=== PATIENT | male | born 1945 | race Caucasian/White ===

== ENCOUNTER 2022-07-21 13:07 | Outpatient (CLI) | payer MEDICARE, OTHER ==
[2022-07-21 15:34] LABS: BASOPHILS # (AUTO) 0.1 10^3/uL (0.0-0.1); BASOPHILS % (AUTO) 0.9 %; EOSINOPHILS # (AUTO) 0.1 10^3/uL (0.0-0.7); EOSINOPHILS % (AUTO) 2.2 %; HCT - HEMATOCRIT 42.2 % (42.0-52.0); HGB - HEMOGLOBIN 13.6 g/dL (14.0-18.0); LYMPHOCYTES # (AUTO) 1.2 10^3/uL (1.5-3.5); LYMPHOCYTES % (AUTO) 22.2 %; MEAN CORPUSCULAR HEMOGLOBIN 30.4 pg (27.0-31.0); MEAN CORPUSCULAR HGB CONC 32.2 g/dL (32.0-36.0); MEAN CORPUSCULAR VOLUME 94.2 fL (80.0-94.0); MEAN PLATELET VOLUME 10.7 fL (7.4-11.4); MONOCYTES # (AUTO) 0.4 10^3/uL (0.0-1.0); MONOCYTES % (AUTO) 6.9 %; NEUTROPHILS # (AUTO) 3.7 10^3/uL (1.5-6.6); NEUTROPHILS % (AUTO) 67.4 %; PLT - PLATELET COUNT 279 10^3/uL (130-450); RED BLOOD COUNT 4.48 10^6/uL (4.70-6.10); RED CELL DISTRIBUTION WIDTH 14.3 % (12.0-15.0); WHITE BLOOD COUNT 5.5 x10^3/uL (4.8-10.8)
[2022-07-21 16:20] LABS: CREATININE,URINE 83.2 mg/dL; MICROALBUM/CREATININE RATIO,UR 97.4 ug/mg (<30.0); MICROALBUMIN,URINE 8.1 mg/dL (0-300.0)
[2022-07-21 16:34] LABS: ESTIMATED AVERAGE GLUCOSE 160 mg/dL (70-100); HEMOGLOBIN A1c% 7.2 % (4.27-6.07)
[2022-07-21 16:58] LABS: ALBUMIN 3.6 g/dL (3.2-5.5); ALBUMIN/GLOBULIN RATIO 1.2 (1.0-2.2); ALKALINE PHOSPHATASE 67 IU/L (42-121); ALT ALANINE AMINOTRANSFERASE 19 IU/L (10-60); AST ASPARTATE AMINOTRANSFERASE 18 IU/L (10-42); BILIRUBIN,TOTAL 0.7 mg/dL (0.2-1.0); BUN - BLOOD UREA NITROGEN 19 mg/dL (6-20); CALCIUM 9.4 mg/dL (8.5-10.3); CARBON DIOXIDE - CO2 30 mmol/L (21-32); CHLORIDE 104 mmol/L (101-111); CHOL/HDL RATIO 1.9 (<5.0); CHOLESTEROL 154 mg/dL; CREATININE 1.1 mg/dL (0.6-1.2); GFR - MDRD 65 (>89); GLUCOSE 109 mg/dL (70-100); HDL CHOLESTEROL 81 mg/dL; LDL CHOLESTEROL,CALCULATED 59 mg/dL; LDL/HDL RATIO 0.7 (<3.6); POTASSIUM 4.5 mmol/L (3.5-5.0); SODIUM 141 mmol/L (135-145); TOTAL PROTEIN 6.6 g/dL (6.7-8.2); TRIGLYCERIDES 72 mg/dL; VLDL CHOLESTEROL 14 mg/dL
== END 2022-07-21 13:08 | disposition home or self-care (01) ==
LOC: LAB.S 13:07
PROVIDERS: ATTEND Hospitalist
DX: E11.22 Type 2 diabetes mellitus with diabetic chronic kidney disease (principal); N18.31 Chronic kidney disease, stage 3a; E87.5 Hyperkalemia; E78.2 Mixed hyperlipidemia; C61 Malignant neoplasm of prostate
CPT/HCPCS: 36415; 80053; 80061; 82043; 82570; 83036; 85025; G0103; 83721; 84153

== ENCOUNTER 2023-04-26 11:06 | Outpatient (CLI) | payer MEDICARE, OTHER ==
[2023-04-26 14:37] LABS: CALCIUM 9.1 mg/dL (8.5-10.3); CARBON DIOXIDE - CO2 29 mmol/L (21-32); CHLORIDE 107 mmol/L (101-111); GLUCOSE 150 mg/dL (70-100); POTASSIUM 4.6 mmol/L (3.5-5.0); SODIUM 141 mmol/L (135-145)
[2023-04-26 15:07] LABS: ALBUMIN 3.5 g/dL (3.2-5.5); ALBUMIN/GLOBULIN RATIO 1.2 (1.0-2.2); ALKALINE PHOSPHATASE 62 IU/L (42-121); ALT ALANINE AMINOTRANSFERASE 17 IU/L (10-60); AST ASPARTATE AMINOTRANSFERASE 16 IU/L (10-42); BILIRUBIN,TOTAL 0.6 mg/dL (0.2-1.0); BUN - BLOOD UREA NITROGEN 19 mg/dL (6-20); CHOL/HDL RATIO 1.8 (<5.0); CHOLESTEROL 164 mg/dL; CREATININE 1.1 mg/dL (0.6-1.2); GFR - MDRD 65 (>89); HDL CHOLESTEROL 89 mg/dL; LDL CHOLESTEROL,CALCULATED 59 mg/dL; LDL/HDL RATIO 0.7 (<3.6); TOTAL PROTEIN 6.5 g/dL (6.7-8.2); TRIGLYCERIDES 82 mg/dL; VLDL CHOLESTEROL 16 mg/dL
[2023-04-28 06:04] LABS: HBsAG SCREEN Negative (Negative)
== END 2023-04-26 11:07 | disposition home or self-care (01) ==
LOC: LAB.S 11:06
PROVIDERS: ATTEND Hospitalist
DX: I10 Essential (primary) hypertension (principal); E78.2 Mixed hyperlipidemia; Z11.59 Encounter for screening for other viral diseases
CPT/HCPCS: 36415; 80053; 80061; 83721; 87340

== ENCOUNTER 2023-12-20 12:26 | Outpatient (CLI) | payer MEDICARE, OTHER ==
[2023-12-20 15:46] LABS: ALBUMIN 3.9 g/dL (3.2-5.5); ALBUMIN/GLOBULIN RATIO 1.5 (1.0-2.2); ALKALINE PHOSPHATASE 76 IU/L (42-121); ALT ALANINE AMINOTRANSFERASE 14 IU/L (10-60); AST ASPARTATE AMINOTRANSFERASE 14 IU/L (10-42); BILIRUBIN,TOTAL 0.4 mg/dL (0.2-1.0); BUN - BLOOD UREA NITROGEN 24 mg/dL (6-20); CALCIUM 9.6 mg/dL (8.5-10.3); CARBON DIOXIDE - CO2 29 mmol/L (21-32); CHLORIDE 106 mmol/L (101-111); CHOL/HDL RATIO 2.1 (<5.0); CHOLESTEROL 169 mg/dL; CREATININE 1.2 mg/dL (0.6-1.3); GFR - MDRD 58 (>89); GLUCOSE 184 mg/dL (74-104); HDL CHOLESTEROL 82 mg/dL; LDL CHOLESTEROL,CALCULATED 65 mg/dL; LDL/HDL RATIO 0.8 (<3.6); POTASSIUM 4.5 mmol/L (3.5-4.5); SODIUM 140 mmol/L (135-145); TOTAL PROTEIN 6.5 g/dL (6.4-8.9); TRIGLYCERIDES 111 mg/dL (48-352); VLDL CHOLESTEROL 22 mg/dL
[2023-12-20 20:37] LABS: ESTIMATED AVERAGE GLUCOSE 174 mg/dL (70-100); HEMOGLOBIN A1c% 7.7 % (4.27-6.07)
[2023-12-21 07:11] LABS: HBsAG SCREEN Negative (Negative)
== END 2023-12-20 12:27 | disposition home or self-care (01) ==
LOC: LAB.S 12:26
PROVIDERS: ATTEND Hospitalist
DX: I10 Essential (primary) hypertension (principal); E78.2 Mixed hyperlipidemia; Z11.59 Encounter for screening for other viral diseases; E11.22 Type 2 diabetes mellitus with diabetic chronic kidney disease
CPT/HCPCS: 36415; 80053; 80061; 82043; 82570; 83036; 83721; 84443; 87340

== ENCOUNTER 2025-03-17 21:34 | Inpatient (IN) ==
--- NOTE | 2025-03-17 21:37 | ED Physician Documentation ---
PD HPI ALTERED MENTAL STATUS Stated complaint Stated Complaint: AMS Chief complaint Chief Complaint: Fever Additional information Additional information: BIBA. HPI is provided by EMS. Patient is unable to provide reliable HPI/ROS due to AMS. EMS report is informed by patient's family members that were on scene but are not in ED at this time. Patient has had approximately 2 days of hematuria, fever Tmax 103. Since earlier today, the patient has also exhibited confusion. Per EMS report, the family is indicated the patient's baseline mental status is AAO x 3, conversant and appropriate. FSBS by EMS 56, given 175 mL D10, repeat FSBS 140. Meds/Allgy Home Medications Ambulatory Orders Medication Instructions Recorded Confirmed amlodipine 5 mg tablet 5 mg PO DAILY 03/18/25 03/18/25 gabapentin 300 mg capsule 900 mg PO DAILY PM 03/18/25 03/18/25 glipizide 10 mg tablet, extended 10 mg PO DAILY 03/18/25 03/18/25 release 24 hr metformin 500 mg tablet,extended 500 mg PO BID 03/18/25 03/18/25 release 24 hr metoprolol succinate 50 mg 50 mg PO DAILY 03/18/25 03/18/25 tablet,extended release 24 hr rosuvastatin 40 mg tablet 20 mg PO DAILY 03/18/25 03/18/25 Allergies Allergies Allergy/AdvReac Type Severity Reaction Status Date / Time No Known Drug Allergies Allergy Verified 03/17/25 22:12 PFSH Active Problems All Active Problems (Updated 03/17/25 @ 23:01 by Madan Pace MD) Sepsis (Acute) Medical History Medical History (Updated 03/17/25 @ 23:01 by Madan Pace MD) Prostate CA Diabetes mellitus Social History Social History Smoking Status: Former smoker Patient requests smoking cessation consult: No Initiate information on smoking cessation: No Relationship: Spouse Level: Assisted Do you feel safe in your home environment?: Yes Suffered physical, verbal, emotional, or financial abuse?: No Exam Exam Vital Signs: Vital Signs x48h Temp Pulse Resp BP Pulse Ox 03/17/25 21:44 39.4 C H 112 H 20 123/58 L 94 Constitutional normal general appearance, no apparent distress and alert HENMT head/scalp atraumatic, hearing grossly abnormal ([place]) and oral mucous membranes abnormal (dry) Eyes PERRL and EOMs intact bilaterally Respiratory breath sounds equal bilaterally, clear to auscultation bilaterally, no wheezes and no rales Cardiovascular normal heart rate noted, regular rhythm noted, no murmur and no edema Gastrointestinal abdomen soft to palpation, nontender to palpation, nondistended and hernia noted (large, soft, nontender umbilical hernia) Neurology no movement abnormality noted and no focal motor deficit noted Psychiatry orientation abnormal (disoriented to place) and (disoriented to time) does not know location. says year is 1994. gradually able to recall year but not day nor month of . Says current month is February Skin skin color normal Results Vitals Vitals: Vital Signs - 24 hr 03/17/25 21:44 03/17/25 22:11 03/17/25 22:14 Temperature 39.4 C H Temperature Source Oral Pulse Rate 112 H 107 H Respiratory Rate 20 28 H Blood Pressure 123/58 L 91/66 O2 Saturation 94 92 O2 Source Room air Room air Pain Intensity 0 0 03/17/25 22:26 03/17/25 22:41 03/17/25 23:00 Temperature Temperature Source Pulse Rate 103 H 102 H 103 H Respiratory Rate 28 H 28 H 28 H Blood Pressure 103/64 118/51 L 106/57 L O2 Saturation 90 L 91 L 90 L O2 Source Room air Room air Room air Pain Intensity 03/17/25 23:15 03/17/25 23:23 03/17/25 23:30 Temperature Temperature Source Pulse Rate 103 H 106 H Respiratory Rate 30 H 28 H Blood Pressure 91/49 L 91/69 O2 Saturation 90 L 91 L O2 Source Pain Intensity 2 03/17/25 23:45 Temperature Temperature Source Pulse Rate 107 H Respiratory Rate 28 H Blood Pressure 97/62 O2 Saturation 93 O2 Source Room air Pain Intensity Oxygen O2 Source Room air Labs Labs: Laboratory Tests 03/17/25 03/17/25 03/17/25 21:50 21:51 21:56 WBC 2.8 L RBC 4.32 L Hgb 13.4 L Hct 40.5 L MCV 93.8 MCH 31.0 MCHC 33.1 RDW 14.5 Plt Count MPV 11.3 Neut # (Auto) Not Reportable Lymph # (Auto) Not Reportable [place] # (Auto) Not Reportable Eos # (Auto) Not Reportable Baso # (Auto) Not Reportable Absolute Nucleated RBC Not Reportable Total Counted 100 Band Neuts % (Manual) 17 H Abnorm Lymph % (Manual) 0 Metamyelocytes % 2 H Nucleated RBC % Not Reportable Neutrophils # (Manual) 2.5 Lymphocytes # (Manual) 0.1 L Monocytes # (Manual) 0.1 Eosinophils # (Manual) 0.0 Basophils # (Manual) 0.0 Differential Comment MANUAL DIFFERENTIAL Platelet Estimate NORMAL (130-450,000) Platelet Morphology NORMAL APPEARANCE RBC Morph Micro Appear NORMAL APPEARANCE Sodium 135 Potassium 3.3 L Chloride 100 L Carbon Dioxide 21 Anion Gap 14.0 H BUN 35 H Creatinine 1.8 H Estimated GFR (MDRD) 36 L Glucose 126 H POC Whole Bld Glucose 129 Estimat Average Glucose 169 H Hemoglobin A1c % 7.5 H Lactic Acid 1.9 Calcium 8.5 Total Bilirubin 1.7 H AST 72 H ALT 28 Alkaline Phosphatase 109 Total Protein 5.9 L Albumin 3.2 Globulin 2.7 Albumin/Globulin Ratio 1.2 Triglycerides 139 Cholesterol 134 LDL Cholesterol, Calc 43 VLDL Cholesterol 28 HDL Cholesterol 63 LDL/HDL Ratio 0.7 Cholesterol/HDL Ratio 2.1 TSH 5.38 Urine Color Urine Clarity Urine pH Ur Specific [place] Urine Protein Urine Glucose (UA) Urine Ketones Urine Occult Blood Urine Nitrite Urine Bilirubin Urine Urobilinogen Ur Leukocyte Esterase Urine RBC Urine WBC Urine WBC Clumps Ur Epithelial Cells Ur Squamous Epith Cells Amorphous Sediment Urine Bacteria Urine Casts Urine Culture Comments Nasal Adenovirus (PCR) NOT DETECTED Nasal B. parapertussis DNA (PCR) NOT DETECTED Nasal Coronavir 229E PCR NOT DETECTED Nasal Coronavir HKU1 PCR NOT DETECTED Nasal Coronavir NL63 PCR NOT DETECTED Nasal Coronavir OC43 PCR NOT DETECTED Nasal Enterovir/Rhinovir PCR NOT DETECTED Nasal Influenza B PCR NOT DETECTED Nasal Influenza A PCR NOT DETECTED Nasal Parainfluen 1 PCR NOT DETECTED Nasal Parainfluen 2 PCR NOT DETECTED Nasal Parainfluen 3 PCR NOT DETECTED Nasal Parainfluen 4 PCR NOT DETECTED Nasal RSV (PCR) NOT DETECTED Nasal B.pertussis DNA PCR NOT DETECTED Nasal C.pneumoniae (PCR) NOT DETECTED [place] Human Metapneumo PCR NOT DETECTED Nasal M.pneumoniae (PCR) NOT DETECTED Nasal SARS-CoV-2 (PCR) NOT DETECTED 03/17/25 23:35 WBC RBC Hgb Hct MCV MCH MCHC RDW Plt Count MPV Neut # (Auto) Lymph # (Auto) [place] # (Auto) Eos # (Auto) Baso # (Auto) Absolute Nucleated RBC Total Counted Band Neuts % (Manual) Abnorm Lymph % (Manual) Metamyelocytes % Nucleated RBC % Neutrophils # (Manual) Lymphocytes # (Manual) Monocytes # (Manual) Eosinophils # (Manual) Basophils # (Manual) Differential Comment Platelet Estimate Platelet Morphology RBC Morph Micro Appear Sodium Potassium Chloride Carbon Dioxide Anion Gap BUN Creatinine Estimated GFR (MDRD) Glucose POC Whole Bld Glucose Estimat Average Glucose Hemoglobin A1c % Lactic Acid Calcium Total Bilirubin AST ALT Alkaline Phosphatase Total Protein Albumin Globulin Albumin/Globulin Ratio Triglycerides Cholesterol LDL Cholesterol, Calc VLDL Cholesterol HDL Cholesterol LDL/HDL Ratio Cholesterol/HDL Ratio TSH Urine Color DARK YELLOW Urine Clarity TURBID Urine pH 6.0 Ur Specific [place] 1.015 Urine Protein 100 H Urine Glucose (UA) NEGATIVE Urine Ketones 15 H Urine Occult Blood LARGE H Urine Nitrite POSITIVE H Urine Bilirubin SMALL H Urine Urobilinogen 2 H Ur Leukocyte Esterase SMALL H Urine RBC 6-10 H Urine WBC 6-10 H Urine WBC Clumps PRESENT Ur Epithelial Cells RARE Renal Tubular Ur Squamous Epith Cells RARE Squamous Amorphous Sediment Moderate Urine Bacteria Few Urine Casts 0-2 Fine Granular Urine Culture Comments INDICATED Nasal Adenovirus (PCR) Nasal B. parapertussis DNA (PCR) Nasal Coronavir 229E PCR Nasal Coronavir HKU1 PCR Nasal Coronavir NL63 PCR Nasal Coronavir OC43 PCR Nasal Enterovir/Rhinovir PCR Nasal Influenza B PCR Nasal Influenza A PCR Nasal Parainfluen 1 PCR Nasal Parainfluen 2 PCR Nasal Parainfluen 3 PCR Nasal Parainfluen 4 PCR Nasal RSV (PCR) Nasal B.pertussis DNA PCR Nasal C.pneumoniae (PCR) [place] Human Metapneumo PCR Nasal M.pneumoniae (PCR) Nasal SARS-CoV-2 (PCR) Rads (name of study) chest xray: Relevant Findings:: Prelim report reviewed and See rad report PD Medical Decision Making ED course Complexity details: reviewed results, re-evaluated patient, considered differential and d/w patient ED course: Sepsis protocol undertaken including IV metronidazole, cefepime, vancomycin after blood cultures and UA obtained. Unremarkable CXR. UA is s/o UTI. CT A/P without contrast undertaken to assess for possible ureteral obstruction and there are no such findings; the CT demonstrates mild thickening of urinary bladder s/o cystitis. I discussed this case with [facility] practitioner on duty who accept admisssion to [facility] hospitalist service. Sepsis Event Sepsis Onset Date: 03/17/25 Sepsis Onset Time: 22:00 Current Stage of Sepsis: Sepsis Initial Hypotension: Not hypotensive Possible source of Sepsis: Unknown Mental/Cognitive Status: Confused, Change from baseline and Alert Reason for not giving 30ml/kg crystalloid fluids: Not in septic shock Capillary refill: Less than 2 seconds Peripheral Pulse Strength: 3+ Normal Peripheral Pulse Location: Radial Bedside ultrasound performed: No Discharge Plan Discharge Patient Disposition: [facility] DC/Xfer Condition: Stable Clinical Impression: Sepsis Interventions: ED Admission Assessment Last Done: 03/18/25 02:51
[2025-03-17 22:10] LABS: BASOPHILS % (AUTO) 0.4 %; EOSINOPHILS % (AUTO) 0.4 %; HCT - HEMATOCRIT 40.5 % (42.0-52.0); HGB - HEMOGLOBIN 13.4 g/dL (14.0-18.0); LYMPHOCYTES % (AUTO) 1.4 %; MEAN CORPUSCULAR HGB CONC 33.1 g/dL (32.0-36.0); MEAN CORPUSCULAR VOLUME 93.8 fL (80.0-94.0); MEAN PLATELET VOLUME 11.3 fL (7.4-11.4); MONOCYTES % (AUTO) 0.4 %; NEUTROPHILS % (AUTO) 96.7 %; RED BLOOD COUNT 4.32 10^6/uL (4.70-6.10); RED CELL DISTRIBUTION WIDTH 14.5 % (12.0-15.0); WHITE BLOOD COUNT 2.8 x10^3/uL (4.8-10.8)
[2025-03-17] MEDS: ACETAMINOPHEN 325 MG TABLET PO STA (22:14)
[2025-03-17] MEDS ORDERED: CEFEPIME 2 GM VIAL ONE (22:21)
[2025-03-17] MEDS ORDERED: VANCOMYCIN 1 GM VIAL ONE (22:21)
[2025-03-17 22:27] LABS: ALBUMIN 3.2 g/dL (3.2-5.5); ALBUMIN/GLOBULIN RATIO 1.2 (1.0-2.2); BILIRUBIN,TOTAL 1.7 mg/dL (0.2-1.0); CALCIUM 8.5 mg/dL (8.5-10.3); CREATININE 1.8 mg/dL (0.6-1.3); POTASSIUM 3.3 mmol/L (3.5-4.5); TOTAL PROTEIN 5.9 g/dL (6.4-8.9)
--- NOTE | 2025-03-17 22:27 | XRAY Report ---
PROCEDURE: XR Chest 1V INDICATIONS: Sepsis TECHNIQUE: One view of the chest was acquired. COMPARISON: None. FINDINGS: Surgical changes and devices: None. Lungs and pleura: No pleural effusions or pneumothorax. Low lung volumes with likely vascular crowdi ng. Mediastinum: Mediastinal contours appear normal. Heart size is normal. Bones and chest wall: No suspicious bony lesions. Overlying soft tissues appear unremarkable. IMPRESSION: Low lung volumes. Otherwise, no acute cardiothoracic process. Reviewed by: Oswaldo Caraballo MD on 03/17/2025 10:26 PM PDT Approved by: Oswaldo Caraballo MD on 03/17/2025 10:26 PM PDT Station ID: [id number]
[2025-03-17] MEDS: CEFEPIME 2 GM in SODIUM CHLORIDE 0.9% MINIBAG 100 ML IV STA (22:34)
[2025-03-17 22:39] LABS: ABNORMAL LYMPHS % (MANUAL) 0 %
[2025-03-17] MEDS: metroNIDAZOLE 500 MG/100 ML 500 MG/100 ML BAG IV STA (22:40)
[2025-03-17 22:43] LABS: BAND NEUTROPHILS % (MANUAL) 17 %; BASOPHILS % (MANUAL) 1 %; LYMPHOCYTES # (MANUAL) 0.1 10^3/uL (1.5-3.5); LYMPHOCYTES % (MANUAL) 5 %; METAMYELOCYTES % (MANUAL) 2 %; MONOCYTES # (MANUAL) 0.1 10^3/uL (0.0-1.0); NEUTROPHILS # (MANUAL) 2.5 10^3/uL (1.5-6.6)
[2025-03-17 22:44] LABS: PLATELET MORPHOLOGY NORMAL APPEARANCE (NORMAL); RBC MORPHOLOGY (MULTIPLE) NORMAL APPEARANCE (NORMAL)
[2025-03-17 22:45] LABS: DIFFERENTIAL COMMENT MANUAL DIFFERENTIAL; PLATELET ESTIMATE, MANUAL NORMAL (130-450,000) (NORMAL)
[2025-03-17] MEDS: VANCOMYCIN INJ 1.75 GM in SODIUM CHLORIDE 0.9% 500 ML IV STA (23:10)
[2025-03-17] MEDS: SODIUM CHLORIDE 0.9% 1,000 ML IV STA (23:10)
[2025-03-17] MEDS: ACETAMINOPHEN 500 MG TABLET PO STA (23:23)
[2025-03-17 23:44] LABS: B. PARAPERTUSSIS- RESP PCR PAN NOT DETECTED; B. PERTUSSIS- RESP PCR PANEL NOT DETECTED; C. PNEUMONIAE- RESP PCR PANEL NOT DETECTED; CORONAVIRUS 229E-RESP PCR NOT DETECTED; CORONAVIRUS HKU1-RESP PCR NOT DETECTED; CORONAVIRUS NL63-RESP PCR NOT DETECTED; CORONAVIRUS OC43-RESP PCR NOT DETECTED; HUMAN METAPNEUMOVIRUS NOT DETECTED; INFLUENZA A- RESP PCR PANEL NOT DETECTED; INFLUENZA B - RESP PCR PANEL NOT DETECTED; M. PNEUMONIAE- RESP PCR PANEL NOT DETECTED; PARAINFLUENZA VIRUS 1 NOT DETECTED; PARAINFLUENZA VIRUS 2 NOT DETECTED; PARAINFLUENZA VIRUS 4 NOT DETECTED; RHINOVIRUS/ENTEROVIRUS NOT DETECTED; RSV- RESP PCR PANEL NOT DETECTED; SARS-CoV-2 -RESP PCR PANEL NOT DETECTED
[2025-03-17 23:51] LABS: BILIRUBIN,URINE SMALL (NEGATIVE); CLARITY,URINE TURBID (CLEAR); GLUCOSE, URINE (UA) NEGATIVE (NEGATIVE); KETONES,URINE (UA) 15 mg/dL (NEGATIVE); LEUKOCYTE ESTERASE, URINE SMALL (NEGATIVE); NITRITE,URINE POSITIVE (NEGATIVE); OCCULT BLOOD,URINE LARGE (NEGATIVE); PROTEIN,URINE 100 mg/dL (NEGATIVE); UROBILINOGEN,URINE 2 E.U./dL (NORMAL)
[2025-03-18 00:02] LABS: AMORPHOUS SEDIMENT,UR Moderate /LPF; BACTERIA,URINE Few /HPF (None Seen); CASTS, URINE 0-2 Fine Granular /LPF; EPITHELIAL CELLS,UR RARE Renal Tubular /HPF (<= Few); SQUAMOUS EPITHELIAL CELL,UR RARE Squamous (<= Few); WBC CLUMPS,URINE PRESENT
[2025-03-18] MEDS ORDERED: ONDANSETRON 4 MG/2 ML VIAL IVP PRN (00:23)
[2025-03-18] MEDS ORDERED: BENZOCAINE/MENTHOL LOZENGE MM PRN (00:23)
[2025-03-18] MEDS ORDERED: BENZONATATE 100 MG CAPSULE PO PRN (00:23)
[2025-03-18] MEDS: POTASSIUM BICARB 25 MEQ TABLET PO STA (00:43)
[2025-03-18] MEDS: LACTATED RINGERS 1,000 ML IV SCH (00:44)
[2025-03-18 01:03] LABS: CHOL/HDL RATIO 2.1 (<5.0); CHOLESTEROL 134 mg/dL; HDL CHOLESTEROL 63 mg/dL; LDL CHOLESTEROL,CALCULATED 43 mg/dL; LDL/HDL RATIO 0.7 (<3.6); TRIGLYCERIDES 139 mg/dL; VLDL CHOLESTEROL 28 mg/dL
--- NOTE | 2025-03-18 01:13 | CT Report ---
PROCEDURE: CT Abdomen/Pelvis WO INDICATIONS: fever, UTI TECHNIQUE: A CT scan of the abdomen and pelvis was performed without the use of intravenous contrast. Images we re recorded and evaluated at appropriate window settings. Reformats: coronal and sagittal. For radiat ion dose reduction, the following was used: automated exposure control, adjustment of mA and/or kV ac cording to patient size. COMPARISON: None. FINDINGS: Image quality: Poor; motion artifact limits evaluation. Peritoneum: No pneumoperitoneum or ascites. Bones: Diffuse osseous demineralization. Rudimentary ribs at T12 followed by 5 nonrib-bearing lumbar vertebrae. Right L5-S1 pseudarthrosis (). Multilevel thoracolumbar osteoporosis with bridging ost eophytes at L3-S1. 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 Lower Thorax: Cardiomegaly. Mild triple vessel coronary artery calcifications. Liver: Normal in size and contour. Gallbladder: No wall thickening, stones, or pericholecystic edema. Biliary tree: No intrahepatic or extrahepatic biliary duct dilatation. Pancreas: No acute abnormality. Spleen: Normal in size. Kidneys: Atrophic kidneys with bilateral simple cysts. No hydronephrosis or obstructive urolithiasis. Adrenals: No nodularity. Bladder: Mild thickening of the bladder wall. : No acute abnormality. Stomach: No focal masses or abnormal distension. Bowel: Normal bowel wall diameter without obstruction. Fluid in the colon. Nonvisualization of the ap pendix without secondary signs of acute appendicitis. Lymph Nodes: No retroperitoneal, mesenteric, or inguinal lymphadenopathy. Vascular: No abdominal aortic aneurysm. Moderate aortoiliac atherosclerosis. Soft tissues: Fat-containing umbilical hernia measuring 7.7 cm in craniocaudal dimension with a 1.9 c m fascial defect in the craniocaudal dimension (). IMPRESSION: 1.No hydronephrosis or obstructive urolithiasis. 2.Atrophic kidneys. 3.Mild mural thickening of the urinary bladder, which can be seen with cystitis. 4.Moderate fat-containing umbilical hernia. 5.Other chronic findings noted above. Reviewed by: Oswaldo Caraballo MD on 03/18/2025 1:11 AM PDT Approved by: Oswaldo Caraballo MD on 03/18/2025 1:11 AM PDT Station ID: [id number]
--- NOTE | 2025-03-18 02:02 | HISTORY & PHYSICAL EXAMINATION ---
Chief Complaint Chief Complaint Chief Complaint: ams, confusion History of Present Illness History of Present Illness HPI Comment/Other: history obtained form ED as pt is poor historian. pt brought to hospital d/t confusion and weakness. no chest pain reported. no head injuries reported. pt c/o hip pain and states he has fallen at home. no abuse reported. when asked questions, pt is very tangential during discussion, even stating the year to be 1994. Review of Systems pt unable to answer many questions. tries to answer but then becomes tangential in conversation. does report hip pain and recent fall. Status of ROS: unobtainable due to mental status PFSH Active Problems All Active Problems (Updated 03/17/25 @ 23:01 by Madan Pace MD) Sepsis (Acute) Medical History Medical History (Updated 03/17/25 @ 23:01 by Madan Pace MD) Prostate CA Diabetes mellitus Social History Social History Relationship: Spouse Do you feel safe in your home environment?: Yes Suffered physical, verbal, emotional, or financial abuse?: No Meds/Allgy Home Medications Ambulatory Orders Medication Instructions Recorded Confirmed amlodipine 5 mg tablet 5 mg PO DAILY 03/18/25 03/18/25 gabapentin 300 mg capsule 900 mg PO DAILY PM 03/18/25 03/18/25 glipizide 10 mg tablet, extended 10 mg PO DAILY 03/18/25 03/18/25 release 24 hr metformin 500 mg tablet,extended 500 mg PO BID 03/18/25 03/18/25 release 24 hr metoprolol succinate 50 mg 50 mg PO DAILY 03/18/25 03/18/25 tablet,extended release 24 hr rosuvastatin 40 mg tablet 20 mg PO DAILY 03/18/25 03/18/25 Allergies Allergies Allergy/AdvReac Type Severity Reaction Status Date / Time No Known Drug Allergies Allergy Verified 03/17/25 22:12 Exam Exam Vital Signs: Vital Signs x48h Temp Pulse Resp BP Pulse Ox O2 Flow Rate 03/18/25 01:30 103 H 24 92/51 L 94 2 03/18/25 01:15 106 H 26 H 94 2 03/18/25 01:00 107 H 26 H 92/54 L 95 2 03/18/25 00:57 30 H 88 L 03/18/25 00:49 37.8 C 03/18/25 00:45 37.8 C 109 H 28 H 112/86 92 03/17/25 23:45 107 H 28 H 97/62 93 03/17/25 23:30 106 H 28 H 91/69 91 L 03/17/25 23:15 103 H 30 H 91/49 L 90 L 03/17/25 23:00 103 H 28 H 106/57 L 90 L 03/17/25 22:41 102 H 28 H 118/51 L 91 L 03/17/25 22:26 103 H 28 H 103/64 90 L 03/17/25 22:11 107 H 28 H 91/66 92 03/17/25 21:44 39.4 C H 112 H 20 123/58 L 94 Sepsis Event Note (H) Evaluation Possible source of Sepsis: positive Unknown Conclusion/Plan Problem List (1) Sepsis: Lab Results 03/17/25 21:56 03/17/25 21:56 Other Other Results/Comments: pt with - - sepsis in setting of uti + pyelo rocephin started f/u cultures lactic ok at this time low bp, tachycardic --> IVF - toxic, metabolic encephalopathy d/t above no focal neuro deficits neuro checks - charlie in setting of above check renal sono ivf, avoid nephrotoxins - generalized debility recent fall, hip pain check XR hip/pelvis would benefit from pt eval and tx f/u labs, cultures, electrolytes, neuro status further orders per clinical course
[2025-03-18 02:04] LABS: THYROID STIMULATING HORMONE 5.38 uIU/mL (0.34-5.60)
--- OUTSIDE RECORDS SUMMARY | 2025-03-18 02:05 | EXTERNAL MEDICAL SUMMARY RPT | Continuity of Care Document ---
Author Organization [place] Address [address] [address] Phone Results/Labs test date facility value unit notes Result panel 1 SARS-CoV-2 -RESP PCR PANEL 2025-03-17 21:50 [facility] NOT DETECTED (missing) A negative test result for this test indicates that SARS-CoV-2 RNA was not present in the specimen above the limit of detection. Testing performed on the BioFire RP2.1 Panel, a multiplexed nucleic acid repiratory panel. Negative results do not preclude infection with SARS-CoV-2 virus and should not be the sole basis of a patient management decision. In some patients repeat testing at various time points may be necessary for virus detection. False-negative results may arise from improper sample collection, degradation of viral RNA during shipping or storage, the presence of PCR inhibitors, and/or mutation in the SARS-CoV-2 virus. INFLUENZA A- RESP PCR PANEL 2025-03-17 21:50 [facility] NOT DETECTED (missing) Influenza A including subtypes H1, H3, and H1-2009 not detected by the BioFire RP2.1 Panel, a multiplexed nucleic acid test intended for the simultaneous qualitative detection and differentiation of nucleic acids from multiple viral and bacterial respiratory organisms. B. PARAPERTUSSIS- RESP PCR PERES 2025-03-17 21:50 [facility] NOT DETECTED (missing) Negative results for this organism do not preclude infection with this organism and may require additional laboratory testing (e.g., bacterial and viral culture, immunofluorescence, and radiography) when evaluating a patient with possible respiratory tract infection. B. PERTUSSIS- RESP PCR PANEL 2025-03-17 21:50 [facility] NOT DETECTED (missing) Negative results for this organism do not preclude infection with this organism and may require additional laboratory testing (e.g., bacterial and viral culture, immunofluorescence, and radiography) when evaluating a patient with possible respiratory tract infection. C. PNEUMONIAE- RESP PCR PANEL 2025-03-17 21:50 [facility] NOT DETECTED (missing) Negative results for this organism do not preclude infection with this organism and may require additional laboratory testing (e.g., bacterial and viral culture, immunofluorescence, and radiography) when evaluating a patient with possible respiratory tract infection. M. PNEUMONIAE- RESP PCR PANEL 2025-03-17 21:50 [facility] NOT DETECTED (missing) Negative results for this organism do not preclude infection with this organism and may require additional laboratory testing (e.g., bacterial and viral culture, immunofluorescence, and radiography) when evaluating a patient with possible respiratory tract infection. CORONAVIRUS 229E-RESP PCR 2025-03-17 21:50 [facility] NOT DETECTED (missing) Negative results in the setting ofa respiratory illness may be due to infection with pathogens not detected by this test, or lower respiratory tract infection that may not be detected by nasopharyngeal specimen. CORONAVIRUS HKU1-RESP PCR 2025-03-17 21:50 [facility] NOT DETECTED (missing) Negative results in the setting ofa respiratory illness may be due to infection with pathogens not detected by this test, or lower respiratory tract infection that may not be detected by nasopharyngeal specimen. CORONAVIRUS AN58-XOPE PCR 2025-03-17 21:50 [facility] NOT DETECTED (missing) Negative results in the setting ofa respiratory illness may be due to infection with pathogens not detected by this test, or lower respiratory tract infection that may not be detected by nasopharyngeal specimen. CORONAVIRUS [id number]-XIIX PCR 2025-03-17 21:50 [facility] NOT DETECTED (missing) Negative results in the setting ofa respiratory illness may be due to infection with pathogens not detected by this test, or lower respiratory tract infection that may not be detected by nasopharyngeal specimen. HUMAN METAPNEUMOVIRUS 2025-03-17 21:50 [facility] NOT DETECTED (missing) Negative results in the setting ofa respiratory illness may be due to infection with pathogens not detected by this test, or lower respiratory tract infection that may not be detected by nasopharyngeal specimen. INFLUENZA B - RESP PCR PANEL 2025-03-17 21:50 [facility] NOT DETECTED (missing) Negative results in the setting ofa respiratory illness may be due to infection with pathogens not detected by this test, or lower respiratory tract infection that may not be detected by nasopharyngeal specimen. PARAINFLUENZA VIRUS 1 2025-03-17 21:50 [facility] NOT DETECTED (missing) Negative results in the setting ofa respiratory illness may be due to infection with pathogens not detected by this test, or lower respiratory tract infection that may not be detected by nasopharyngeal specimen. PARAINFLUENZA VIRUS 2 2025-03-17 21:50 [facility] NOT DETECTED (missing) Negative results in the setting ofa respiratory illness may be due to infection with pathogens not detected by this test, or lower respiratory tract infection that may not be detected by nasopharyngeal specimen. PARAINFLUENZA VIRUS 3 2025-03-17 21:50 [facility] NOT DETECTED (missing) Negative results in the setting ofa respiratory illness may be due to infection with pathogens not detected by this test, or lower respiratory tract infection that may not be detected by nasopharyngeal specimen. PARAINFLUENZA VIRUS 4 2025-03-17 21:50 [facility] NOT DETECTED (missing) Negative results in the setting ofa respiratory illness may be due to infection with pathogens not detected by this test, or lower respiratory tract infection that may not be detected by nasopharyngeal specimen. RHINOVIRUS/ENTEROVI BROCK 2025-03-17 21:50 [facility] NOT DETECTED (missing) Negative results in the setting ofa respiratory illness may be due to infection with pathogens not detected by this test, or lower respiratory tract infection that may not be detected by nasopharyngeal specimen. RSV- RESP PCR PANEL 2025-03-17 21:50 [facility] NOT DETECTED (missing) Negative results in the setting ofa respiratory illness may be due to infection with pathogens not detected by this test, or lower respiratory tract infection that may not be detected by nasopharyngeal specimen. ADENOVIRUS - RESP PCR PANEL 2025-03-17 21:50 [facility] NOT DETECTED (missing) Y Negative results in the setting ofa respiratory illness may be due to infection with pathogens not detected by this test, or lower respiratory tract infection that may not be detected by nasopharyngeal specimen. Result panel 2 GLUCOSE, WHOLE BLOOD 2025-03-17 21:51 [facility] 129 (missing) (missing) Result panel 3 PLT - PLATELET COUNT 2025-03-17 21:56 [facility] (missing) 10 3/ul UNABLE TO REPORT AUTOMATED PLATELET COUNT DUE TO CELLULAR INTERFERENCE OR PLATELET CLUMPING. MANUAL PLATELET ESTIMATE PERFORMED. SUGGEST RECOLLECTION IF INDICATED. ABNORMAL LYMPHS % (MANUAL) 2025-03-17 21:56 [facility] 0 % (missing) BASOPHILS # (MANUAL) 2025-03-17 21:56 [facility] 0.0 10 3/ul (missing) EOSINOPHILS # (MANUAL) 2025-03-17 21:56 [facility] 0.0 10 3/ul (missing) MONOCYTES # (MANUAL) 2025-03-17 21:56 [facility] 0.1 10 3/ul (missing) LYMPHOCYTES # (MANUAL) 2025-03-17 21:56 [facility] 0.1 10 3/ul (missing) LDL/HDL RATIO 2025-03-17 21:56 [facility] 0.7 (missing) (missing) ALBUMIN/GLOBULIN RATIO 2025-03-17 21:56 [facility] 1.2 (missing) (missing) BILIRUBIN,TOTAL 2025-03-17:56 [facility] 1.7 mg/dl As of May 2023 testing method has changed, this may include reference ranges. CREATININE 2025-03-17:56 [facility] 1.8 mg/dl As of May 2023 testing method has changed, this may include reference ranges. LACTIC ACID, VENOUS 2025-03-17:56 [facility] 1.9 mmol/l Y As of May 2023 testing method has changed, this may include reference ranges. TOTAL CELLS COUNTED 2025-03-17:56 [facility] 100 (missing) (missing) CHLORIDE 2025-03-17 21:56 [facility] 100 mmol/l As of May 2023 testing method has changed, this may include reference ranges. ALKALINE PHOSPHATASE 2025-03-17 21:56 [facility] 109 iu/l As of May 2023 testing method has changed, this may include reference ranges. MEAN PLATELET VOLUME 2025-03-17 21:56 [facility] [facility] 11.3 fl (missing) GLUCOSE 2025-03-17:56 [facility] 126 mg/[facility] As of May 2023 testing method has changed, this may include reference ranges. HGB - HEMOGLOBIN 2025-03-17:56 [employer] 13.4 g/dl (missing) CHOLESTEROL 2025-03-17:56 [facility] 134 mg/dl Social History date description facility
[2025-03-18 05:33] LABS: BASOPHILS # (AUTO) 0.1 10^3/uL (0.0-0.1); BASOPHILS % (AUTO) 0.5 %; EOSINOPHILS % (AUTO) 0.1 %; HGB - HEMOGLOBIN 11.9 g/dL (14.0-18.0); LYMPHOCYTES # (AUTO) 0.3 10^3/uL (1.5-3.5); MEAN CORPUSCULAR HEMOGLOBIN 31.2 pg (27.0-31.0); MEAN CORPUSCULAR HGB CONC 33.1 g/dL (32.0-36.0); MEAN CORPUSCULAR VOLUME 94.2 fL (80.0-94.0); MEAN PLATELET VOLUME 10.8 fL (7.4-11.4); MONOCYTES # (AUTO) 0.7 10^3/uL (0.0-1.0); MONOCYTES % (AUTO) 5.1 %; NEUTROPHILS % (AUTO) 90.9 %; RED BLOOD COUNT 3.82 10^6/uL (4.70-6.10); RED CELL DISTRIBUTION WIDTH 14.7 % (12.0-15.0); WHITE BLOOD COUNT 13.2 x10^3/uL (4.8-10.8)
[2025-03-18 05:48] LABS: MAGNESIUM 1.6 mg/dL (1.7-2.3)
[2025-03-18 05:50] LABS: ALBUMIN 2.9 g/dL (3.2-5.5); ALBUMIN/GLOBULIN RATIO 1.3 (1.0-2.2); BILIRUBIN,TOTAL 1.6 mg/dL (0.2-1.0); CALCIUM 7.9 mg/dL (8.5-10.3); CREATININE 2.1 mg/dL (0.6-1.3); TOTAL PROTEIN 5.2 g/dL (6.4-8.9)
[2025-03-18 06:00] LABS: PLATELET ESTIMATE, MANUAL DECREASED (<130,000) (NORMAL); PLATELET MORPHOLOGY 1+ LARGE PLATELETS (NORMAL); PLT - PLATELET COUNT 105 10^3/uL (130-450)
[2025-03-18] MEDS: DEXTROSE 40% GEL 37.5 GM TUBE PO ONE (06:17)
[2025-03-18] MEDS ORDERED: DEXTROSE 40% GEL 37.5 GM TUBE ONE (06:17)
[2025-03-18] MEDS: cefTRIAXone 1 GM in SODIUM CHLORIDE 0.9% MINIBAG 100 ML IV SCH (08:09)
[2025-03-18] MEDS: DEXTROSE 5%-LACTATED RINGERS 1,000 ML IV SCH (08:09)
[2025-03-18] MEDS: LACTOBACILLUS RHAMNOSUS GG CAPSULE PO SCH (08:10)
[2025-03-18] MEDS: ASCORBIC ACID 500 MG TABLET PO SCH (08:10)
[2025-03-18] MEDS: polyethylene glycoL 3350 17 GM PACKET PO SCH (08:17)
[2025-03-18 08:46] LABS: ESTIMATED AVERAGE GLUCOSE 169 mg/dL (70-100); HEMOGLOBIN A1c% 7.5 % (4.27-6.07)
--- NOTE | 2025-03-18 10:35 | XRAY Report ---
PROCEDURE: XR Hips w/Pelvis 2-3V BL INDICATIONS: pain, falls TECHNIQUE: AP view of the pelvis and bilateral frog-leg lateral view(s) of the hips were acquired. COMPARISON: None. FINDINGS: Bones: No fractures or dislocations. No suspicious bony lesions. Mild to moderate bilateral hip deg enerative change. The visualized pelvic ring appears intact. Soft tissues: No suspicious soft tissue calcifications or masses. IMPRESSION: Mild to moderate bilateral hip degenerative change. No acute bony abnormality. Reviewed by: Trent Pardo MD on 03/18/2025 10:34 AM PDT Approved by: Trent Pardo MD on 03/18/2025 10:34 AM PDT Station ID: [id number]
[2025-03-18] MEDS: METOPROLOL SUCCINATE 50 MG TABLET PO SCH (11:47)
[2025-03-18] MEDS: INSULIN LISPRO 300 UNIT/3 ML PEN SUBQ SCH (11:48)
[2025-03-18] MEDS: cefTRIAXone 1 GM VIAL IVP ONE (11:48)
--- NOTE | 2025-03-18 12:52 | PHARMACY PROGRESS NOTE ---
Best Possible Medication History Admit Date and Time: 03/18/25 0022 Home Medications Medication Instructions Recorded Confirmed Type amlodipine 5 mg tablet 5 mg PO QAM 03/18/25 03/18/25 History gabapentin 300 mg capsule 900 mg PO DAILY PM 03/18/25 03/18/25 History glipizide 10 mg tablet, extended 10 mg PO QAM 03/18/25 03/18/25 History release 24 hr metformin 500 mg tablet,extended 500 mg PO BID 03/18/25 03/18/25 History release 24 hr metoprolol succinate 50 mg 50 mg PO QPM 03/18/25 03/18/25 History tablet,extended release 24 hr rosuvastatin 40 mg tablet 20 mg PO QPM 03/18/25 03/18/25 History Processed by: Pharmacy (Medication reconciliation completed by pharmacy account directorChe) Medications reviewed in ED?: No Medication History completed: Yes Patient Interview: Completed Secondary Source(s): Written medication list, Spouse/Significant other and Insurance records (looks like has 1 tablet written down for most medications, but fill instructions are for higher or mor frequent dosing (glipizide, metformin, metoprolol, rosuvastatin)) [facility] Statement: As the person ultimately responsible for medication therapy, providers are able to order a medication from an existing home medication list in [facility] via the "Reconcile Routine" prior to Confirmation of that medication by client support analyst. Such practice is discouraged except when the physician, in their clinical judgment, deems that a medical need exists for a medication without regard to previous use.
--- NOTE | 2025-03-18 13:01 | PT Plan of Care ---
PT Inpatient Plan of Care DIAGNOSIS Diagnosis: sepsis d/t UTI c AMS Diagnosis: bacteremia Referring Provider: Eliezer Hernandez Patient Status: Inpatient CHIEF COMPLAINT Chief Complaint: weakness Onset of Chief Complaint: FISH PROCESSOR MEDICAL/SURGICAL HISTORY Medical History (Updated 03/17/25 @ 23:01 by Madan Pace MD) Prostate CA Diabetes mellitus BALANCE/FUNCTIONAL RESULTS Sitting Balance: Good Standing Balance: Fair Tinetti Composite Score (Balance + Gait): 19 Tinetti Assessment Interpretation: Moderate Fall Risk ASSESSMENT Assessment: Pt is a pleasant 79yo M referred for PT eval d/t limited mobility and weakness. Pt admitted with sepsis d/t UTI, found to have gram negative bacteremia. Recent fall at home with BL hip pain. Pt is cleared for PT eval. Pt lives in multistory home with his who is present for majority of eval; they report he is fully indep at baseline including stair climbing and gardening on a near daily basis. Upon PT eval, pt met on 2L O2, [place] but able to answer questions correctly. Overall A&Ox3 but benefits from slow, loud, and clear 2-3 step cues d/t inattention, [place], mild confusion. Transfers with minAx1 and able to amb c FWW and min to modAx1 x15' overall. Gait notable for reduced toe clearance and step to pattern. Pt is a moderate fall risk given h/o falls, current strength and gait pattern and Tinetti score of 19/28. Given above impairments, pt is far below baseline of indep mobility and will benefit from skilled PT in acute setting to progress functional mobility and reduce fall risk. When medically clear, PT rec dc to SNF. GOALS Improve supine to sit to:: Contact Guard Improve sit to stand to:: Contact Guard Improve pivot transfer ability to:: Contact Guard Improve sit to supine to:: Contact Guard Improve gait ability to:: CGA Advance Assistive Device to:: Front Wheeled Walker Increase distance walked to (in feet):: 100 PLAN Frequency: 1-2x/day Duration: Until goals are met DISCHARGE RECOMMENDATIONS Discharge Location: Group Home Facility [place] Equipment Recommended: Front wheeled walker Other Discharge Equipment: may need FWW Transport Needs at Discharge: Wheelchair van
--- NOTE | 2025-03-18 13:01 | PT Plan of Care ---
PT Inpatient Plan of Care DIAGNOSIS Diagnosis: sepsis d/t UTI c AMS Diagnosis: bacteremia Referring Provider: Eliezer Hernandez Patient Status: Inpatient CHIEF COMPLAINT Chief Complaint: weakness Onset of Chief Complaint: SAFETY SPEC MEDICAL/SURGICAL HISTORY Medical History (Updated 03/17/25 @ 23:01 by Madan Pace MD) Prostate CA Diabetes mellitus BALANCE/FUNCTIONAL RESULTS Sitting Balance: Good Standing Balance: Fair Tinetti Composite Score (Balance + Gait): 19 Tinetti Assessment Interpretation: Moderate Fall Risk ASSESSMENT Assessment: Pt is a pleasant 79yo M referred for PT eval d/t limited mobility and weakness. Pt admitted with sepsis d/t UTI, found to have gram negative bacteremia. Recent fall at home with BL hip pain. Pt is cleared for PT eval. Pt lives in multistory home with his who is present for majority of eval; they report he is fully indep at baseline including stair climbing and gardening on a near daily basis. Upon PT eval, pt met on 2L O2, BLACKFEET but able to answer questions correctly. Overall A&Ox3 but benefits from slow, loud, and clear 2-3 step cues d/t inattention, BLACKFEET, mild confusion. Transfers with minAx1 and able to amb c FWW and min to modAx1 x15' overall. Gait notable for reduced toe clearance and step to pattern. Pt is a moderate fall risk given h/o falls, current strength and gait pattern and Tinetti score of 19/28. Given above impairments, pt is far below baseline of indep mobility and will benefit from skilled PT in acute setting to progress functional mobility and reduce fall risk. When medically clear, PT rec dc to SNF. GOALS Improve supine to sit to:: Contact Guard Improve sit to stand to:: Contact Guard Improve pivot transfer ability to:: Contact Guard Improve sit to supine to:: Contact Guard Improve gait ability to:: CGA Advance Assistive Device to:: Front Wheeled Walker Increase distance walked to (in feet):: 100 PLAN Frequency: 1-2x/day Duration: Until goals are met DISCHARGE RECOMMENDATIONS Discharge Location: Long-Term Facility [place] Equipment Recommended: Front wheeled walker Other Discharge Equipment: may need FWW Transport Needs at Discharge: Wheelchair van
[2025-03-18] MEDS: ACETAMINOPHEN 325 MG TABLET PO PRN (17:06)
[2025-03-18] MEDS ORDERED: COD LIVER OIL/ZINC OXIDE 113 GM TUBE TOP PRN (18:11)
[2025-03-18] MEDS ORDERED: CALAMINE/ZINC OXIDE 177 ML BOTTLE TOP PRN (18:11)
[2025-03-18] MEDS: GABAPENTIN 300 MG CAPSULE PO SCH (20:51)
[2025-03-18] MEDS: ATORVASTATIN 40 MG TABLET PO SCH (20:51)
[2025-03-18] MEDS: MELATONIN 3 MG TABLET PO PRN (21:15)
[2025-03-19 05:46] LABS: HCT - HEMATOCRIT 37.8 % (42.0-52.0); HGB - HEMOGLOBIN 12.6 g/dL (14.0-18.0); MEAN CORPUSCULAR HEMOGLOBIN 31.4 pg (27.0-31.0); MEAN CORPUSCULAR HGB CONC 33.3 g/dL (32.0-36.0); MEAN CORPUSCULAR VOLUME 94.3 fL (80.0-94.0); MEAN PLATELET VOLUME 12.2 fL (7.4-11.4); RED BLOOD COUNT 4.01 10^6/uL (4.70-6.10); RED CELL DISTRIBUTION WIDTH 14.8 % (12.0-15.0); WHITE BLOOD COUNT 10.2 x10^3/uL (4.8-10.8)
[2025-03-19 05:59] LABS: CREATININE 2.2 mg/dL (0.6-1.3); POTASSIUM 3.7 mmol/L (3.5-4.5)
[2025-03-19] MEDS: INSULIN LISPRO 300 UNIT/3 ML PEN SUBQ SCH (08:17)
[2025-03-19] MEDS: cefTRIAXone 2 GM VIAL IVP SCH (08:18)
--- NOTE | 2025-03-19 10:07 | PROVIDER PROGRESS NOTE ---
Subjective Subjective Subjective: Patient is feeling better. He denies fevers, chills, shortness of breath. He still states he feels slightly weak, especially in his lower extremities. He is in agreement with going to SNF on discharge. His and son are also in the room and are agreeable with the plan as discussed. Current Medications Current Medications Current Medications: Current Medications Generic Name Dose Route Start Last Admin Trade Name Freq PRN Reason Stop Dose Admin Acetaminophen 650 mg 03/18/25 00:23 03/19/25 09:58 Acetaminophen 325 Mg Tablet PO 650 mg Q6H PRN Administration pain, fever Ascorbic Acid 500 mg 03/18/25 09:00 03/19/25 08:18 Ascorbic Acid 500 Mg Tablet PO 500 mg DAILY RUTH Administration Atorvastatin Calcium 40 mg 03/18/25 21:00 03/18/25 20:51 Atorvastatin 40 Mg Tablet PO 40 mg QPM RUTH Administration Benzonatate 100 mg 03/18/25 00:23 Benzonatate 100 Mg Capsule PO TID PRN Cough Calamine 1 applic 03/18/25 18:11 Calamine/Zinc Oxide 177 Ml Bottle TOP PRN PRN SKIN CARE Ceftriaxone Sodium 2 gm 03/19/25 09:00 03/19/25 08:18 Ceftriaxone 2 Gm Vial IVP 2 gm DAILY RUTH Administration Gabapentin 900 mg 03/18/25 21:00 03/18/25 20:51 Gabapentin 300 Mg Capsule PO 900 mg HS RUTH Administration Insulin Human Lispro 1 - 9 unit 03/19/25 08:00 03/19/25 08:17 Insulin Lispro 300 Unit/3 Ml Pen SUBQ 3 unit 0800,1200,1700,2100 RUTH Administration Protocol Lactobacillus Rhamnosus 1 cap 03/18/25 09:00 03/19/25 08:18 Lactobacillus Rhamnosus Gg Capsule PO 1 cap DAILY RUTH Administration Melatonin 3 mg 03/18/25 00:23 03/18/25 21:15 Melatonin 3 Mg Tablet PO 3 mg QPM PRN Administration sleep Metoprolol Succinate 50 mg 03/18/25 10:00 03/19/25 08:18 Metoprolol Succinate 50 Mg Tablet PO 50 mg DAILY RUTH Administration Morphine Sulfate 2 mg 03/18/25 00:23 Morphine 10 Mg/Ml Vial IVP Q4H PRN Pain Ondansetron HCl 4 mg 03/18/25 00:23 Ondansetron 4 Mg/2 Ml Vial IVP Q8H PRN Nausea / Vomiting Polyethylene Glycol 17 gm 03/18/25 09:00 03/19/25 08:18 Polyethylene Glycol 3350 17 Gm Packet PO Not Given DAILY RUTH Sterile Water 20 ml 03/19/25 09:00 03/19/25 08:18 Water For Injection,Sterile 10 Ml Vial MC 20 ml DAILY RUTH Administration Throat Lozenges 1 lozenge 03/18/25 00:23 Benzocaine/Menthol Lozenge MM Q2HR PRN Mouth Sore Pain Zinc Oxide 113 gm 03/18/25 18:11 Cod Liver Oil/Zinc Oxide 113 Gm Tube TOP PRN PRN Skin Care Objective Vital Signs/Intake & Output Reviewed Vital Signs: Yes Vital Signs: Vital Signs x48h Temp Pulse Resp BP Pulse Ox 03/19/25 08:06 97.7 F 82 18 116/64 94 03/19/25 05:21 97.7 F 83 18 110/63 94 Intake & Output: Intake & Output 03/16/25 03/17/25 03/18/25 03/19/25 23:59 23:59 23:59 23:59 Intake Total 100 / 100 4924 / 4924 240 / 240 Balance 100 / 100 4924 / 4924 240 / 240 Weight (kg) 91 kg 89.5 kg Objective General Appearance: positive No acute distress, Alert and Other (very hard of hearing); negative Anxious Eyes Bilateral: positive Normal inspection, PERRL and EOMI ENT: positive ENT inspection nml, Pharynx nml and No signs of dehydration Neck: positive Nml inspection, Thyroid nml and No JVD Respiratory: positive Chest non-tender, No respiratory distress and Breath sounds nml; negative Wheezes, Rales or Rhonchi Cardiovascular: positive Regular rate & rhythm, No murmur and No gallop Abdomen: positive Non-tender and No distention; negative Rebound, Hepatomegaly or Splenomegaly Skin: positive Color nml, No rash, Warm and Dry Extremities: positive Non-tender, Full ROM and No pedal edema Neurologic/Psychiatric: positive Oriented x3, Sensation nml and Mood/affect nml Lab Results 03/19/25 05:21 03/19/25 05:21 Other Labs: Lab Results x24hrs 03/19/25 03/19/25 03/18/25 Range/Units 07:22 05:21 20:42 WBC 10.2 (4.8-10.8) x10^3/uL RBC 4.01 L (4.70-6.10) 10^6/uL Hgb 12.6 L (14.0-18.0) g/dL Hct 37.8 L (42.0-52.0) % MCV 94.3 H (80.0-94.0) fL MCH 31.4 H (27.0-31.0) pg MCHC 33.3 (32.0-36.0) g/dL RDW 14.8 (12.0-15.0) % Plt Count 96 L (130-450) 10^3/uL MPV 12.2 H (7.4-11.4) fL Sodium 135 (135-145) mmol/L Potassium 3.7 (3.5-4.5) mmol/L Chloride 106 (101-111) mmol/L Carbon Dioxide 23 (21-32) mmol/L Anion Gap 6.0 (6-13) BUN 41 H (6-20) mg/dL Creatinine 2.2 H (0.6-1.3) mg/dL Estimated GFR (MDRD) 29 L (>89) Glucose 201 H (74-104) mg/dL POC Whole Bld Glucose 182 237 (70-100) mg/dL Calcium 8.0 L (8.5-10.3) mg/dL Magnesium 2.0 (1.7-2.3) mg/dL 03/18/25 03/18/25 Range/Units 16:33 11:16 WBC (4.8-10.8) x10^3/uL RBC (4.70-6.10) 10^6/uL Hgb (14.0-18.0) g/dL Hct (42.0-52.0) % MCV (80.0-94.0) fL MCH (27.0-31.0) pg MCHC (32.0-36.0) g/dL RDW (12.0-15.0) % Plt Count (130-450) 10^3/uL MPV (7.4-11.4) fL Sodium (135-145) mmol/L Potassium (3.5-4.5) mmol/L Chloride (101-111) mmol/L Carbon Dioxide (21-32) mmol/L Anion Gap (6-13) BUN (6-20) mg/dL Creatinine (0.6-1.3) mg/dL Estimated GFR (MDRD) (>89) Glucose (74-104) mg/dL POC Whole Bld Glucose 236 282 (70-100) mg/dL Calcium (8.5-10.3) mg/dL Magnesium (1.7-2.3) mg/dL Sepsis Event Note (H) Evaluation Possible source of Sepsis: positive Unknown Assessment/Plan Problem List (1) Gram-negative bacteremia: Impression: Patient presented with a UTI. Blood cultures drawn on 03/17 are 2 out of 2 positive for gram-negative bacteria, Klebsiella pneumonia was detected. Continue IV Rocephin 2 g daily. Patient will require a 7-day course of IV antibiotics. Repeat blood cultures were ordered for today, 03/19. Patient received adequate IV hydration. Tolerating p.o. intake well. Continue to monitor. Leukocytosis has resolved. (2) UTI (urinary tract infection): Impression: See above. Qualifiers: Urinary tract infection type: site unspecified Hematuria presence: w ithout hematuria Qualified Code(s): N39.0 - Urinary tract infection, site not specified (3) Sepsis: Impression: See above. Qualifiers: Sepsis type: sepsis due to unspecified organism Sepsis acute organ dysfunction status: with acute organ dysfunction Severe sepsis acute organ dysfunction type: acute renal failure Acute renal failure type: unspecified S evere sepsis shock status: without septic shock Qualified Code(s): A41.9 - Sepsis, unspecified organism; R65.20 - Severe sepsis without septic shock; N17.9 - Acute kidney failure, unspecified (4) Acute kidney injury: Impression: CT abdomen/pelvis on admission shows no hydronephrosis. Bladder scan completed, with no retention noted. Patient did receive IV hydration initially. Likely ATN due to sepsis from above. (5) Prostate CA: Impression: Not on current treatment for it. If recurrent UTIs becomes a problem, will need follow-up with a urologist. (6) Diabetes mellitus: Impression: Continue low-dose sliding scale, frequent glucose checks, hypoglycemic protocol in place. Qualifiers: Diabetes mellitus type: type 2 Diabetes mellitus usp insulin use: without usp use Diabetes mellitus complication status: without complication Qualified Code(s): E11.9 - Type 2 diabetes mellitus without complications
[2025-03-20] MEDS: MORPHINE 10 MG/ML VIAL IVP PRN (04:08)
[2025-03-20 05:31] LABS: HCT - HEMATOCRIT 36.4 % (42.0-52.0); HGB - HEMOGLOBIN 11.8 g/dL (14.0-18.0); MEAN CORPUSCULAR HEMOGLOBIN 30.5 pg (27.0-31.0); MEAN CORPUSCULAR HGB CONC 32.4 g/dL (32.0-36.0); MEAN CORPUSCULAR VOLUME 94.1 fL (80.0-94.0); MEAN PLATELET VOLUME 11.6 fL (7.4-11.4); RED BLOOD COUNT 3.87 10^6/uL (4.70-6.10); WHITE BLOOD COUNT 8.7 x10^3/uL (4.8-10.8)
[2025-03-20 05:53] LABS: CALCIUM 8.2 mg/dL (8.5-10.3); CREATININE 2.2 mg/dL (0.6-1.3); MAGNESIUM 2.2 mg/dL (1.7-2.3); POTASSIUM 3.7 mmol/L (3.5-4.5)
--- NOTE | 2025-03-20 10:25 | PROVIDER PROGRESS NOTE ---
Subjective Subjective Subjective: Patient is feeling better. He denies fevers, chills, shortness of breath. He still states he feels slightly weak, especially in his lower extremities. He is in agreement with going to SNF on discharge. His and son are also in the room and are agreeable with the plan as discussed. Current Medications Current Medications Current Medications: Current Medications Generic Name Dose Route Start Last Admin Trade Name Freq PRN Reason Stop Dose Admin Acetaminophen 650 mg 03/18/25 00:23 03/19/25 17:01 Acetaminophen 325 Mg Tablet PO 650 mg Q6H PRN Administration pain, fever Ascorbic Acid 500 mg 03/18/25 09:00 03/20/25 09:02 Ascorbic Acid 500 Mg Tablet PO 500 mg DAILY RUTH Administration Atorvastatin Calcium 40 mg 03/18/25 21:00 03/19/25 22:31 Atorvastatin 40 Mg Tablet PO 40 mg QPM RUTH Administration Benzonatate 100 mg 03/18/25 00:23 Benzonatate 100 Mg Capsule PO TID PRN Cough Calamine 1 applic 03/18/25 18:11 Calamine/Zinc Oxide 177 Ml Bottle TOP PRN PRN SKIN CARE Ceftriaxone Sodium 2 gm 03/19/25 09:00 03/20/25 09:02 Ceftriaxone 2 Gm Vial IVP 2 gm DAILY RUTH Administration Gabapentin 900 mg 03/18/25 21:00 03/19/25 22:30 Gabapentin 300 Mg Capsule PO 900 mg HS RUTH Administration Insulin Human Lispro 1 - 9 unit 03/19/25 08:00 03/20/25 08:59 Insulin Lispro 300 Unit/3 Ml Pen SUBQ 3 unit 0800,1200,1700,2100 RUTH Administration Protocol Lactobacillus Rhamnosus 1 cap 03/18/25 09:00 03/20/25 09:02 Lactobacillus Rhamnosus Gg Capsule PO 1 cap DAILY RUTH Administration Melatonin 3 mg 03/18/25 00:23 03/19/25 22:30 Melatonin 3 Mg Tablet PO 3 mg QPM PRN Administration sleep Metoprolol Succinate 50 mg 03/18/25 10:00 03/20/25 09:02 Metoprolol Succinate 50 Mg Tablet PO 50 mg DAILY RUTH Administration Morphine Sulfate 2 mg 03/20/25 09:14 Morphine 2 Mg/Ml Carpuject IVP Q4H PRN Pain (Level 7-10) Ondansetron HCl 4 mg 03/18/25 00:23 Ondansetron 4 Mg/2 Ml Vial IVP Q8H PRN Nausea / Vomiting Polyethylene Glycol 17 gm 03/18/25 09:00 03/20/25 09:03 Polyethylene Glycol 3350 17 Gm Packet PO Not Given DAILY RUTH Sterile Water 20 ml 03/19/25 09:00 03/20/25 09:02 Water For Injection,Sterile 10 Ml Vial MC 20 ml DAILY RUTH Administration Throat Lozenges 1 lozenge 03/18/25 00:23 Benzocaine/Menthol Lozenge MM Q2HR PRN Mouth Sore Pain Zinc Oxide 113 gm 03/18/25 18:11 Cod Liver Oil/Zinc Oxide 113 Gm Tube TOP PRN PRN Skin Care Objective Vital Signs/Intake & Output Reviewed Vital Signs: Yes Vital Signs: Vital Signs x48h Temp Pulse Resp BP Pulse Ox 03/20/25 09:00 97.9 F 73 18 123/61 94 03/20/25 04:02 98.1 F 76 18 114/62 94 Intake & Output: Intake & Output 03/17/25 03/18/25 03/19/25 03/20/25 23:59 23:59 23:59 23:59 Intake Total 100 / 100 4924 / 4924 900 / 900 340 / 340 Output Total 300 / 300 2000 / 2000 Balance 100 / 100 4924 / 4924 600 / 600 -1660 / -1660 Weight (kg) 91 kg 89.5 kg Objective General Appearance: positive No acute distress, Alert and Other (very hard of hearing); negative Anxious Eyes Bilateral: positive Normal inspection, PERRL and EOMI ENT: positive ENT inspection nml, Pharynx nml and No signs of dehydration Neck: positive Nml inspection, Thyroid nml and No JVD Respiratory: positive Chest non-tender, No respiratory distress and Breath sounds nml; negative Wheezes, Rales or Rhonchi Cardiovascular: positive Regular rate & rhythm, No murmur and No gallop Abdomen: positive Non-tender and No distention; negative Rebound, Hepatomegaly or Splenomegaly Skin: positive Color nml, No rash, Warm and Dry Extremities: positive Non-tender, Full ROM and No pedal edema Neurologic/Psychiatric: positive Oriented x3, Sensation nml and Mood/affect nml Lab Results 03/20/25 05:15 03/20/25 05:15 Other Labs: Lab Results x24hrs 03/20/25 03/20/25 03/19/25 Range/Units 07:26 05:15 20:47 WBC 8.7 (4.8-10.8) x10^3/uL RBC 3.87 L (4.70-6.10) 10^6/uL Hgb 11.8 L (14.0-18.0) g/dL Hct 36.4 L (42.0-52.0) % MCV 94.1 H (80.0-94.0) fL MCH 30.5 (27.0-31.0) pg MCHC 32.4 (32.0-36.0) g/dL RDW 15.0 (12.0-15.0) % Plt Count 126 L (130-450) 10^3/uL MPV 11.6 H (7.4-11.4) fL Sodium 139 (135-145) mmol/L Potassium 3.7 (3.5-4.5) mmol/L Chloride 107 (101-111) mmol/L Carbon Dioxide 26 (21-32) mmol/L Anion Gap 6.0 (6-13) BUN 38 H (6-20) mg/dL Creatinine 2.2 H (0.6-1.3) mg/dL Estimated GFR (MDRD) 29 L (>89) Glucose 195 H (74-104) mg/dL POC Whole Bld Glucose 183 182 (70-100) mg/dL Calcium 8.2 L (8.5-10.3) mg/dL Magnesium 2.2 (1.7-2.3) mg/dL 03/19/25 03/19/25 Range/Units 16:55 11:28 WBC (4.8-10.8) x10^3/uL RBC (4.70-6.10) 10^6/uL Hgb (14.0-18.0) g/dL Hct (42.0-52.0) % MCV (80.0-94.0) fL MCH (27.0-31.0) pg MCHC (32.0-36.0) g/dL RDW (12.0-15.0) % Plt Count (130-450) 10^3/uL MPV (7.4-11.4) fL Sodium (135-145) mmol/L Potassium (3.5-4.5) mmol/L Chloride (101-111) mmol/L Carbon Dioxide (21-32) mmol/L Anion Gap (6-13) BUN (6-20) mg/dL Creatinine (0.6-1.3) mg/dL Estimated GFR (MDRD) (>89) Glucose (74-104) mg/dL POC Whole Bld Glucose 166 271 (70-100) mg/dL Calcium (8.5-10.3) mg/dL Magnesium (1.7-2.3) mg/dL Sepsis Event Note (H) Evaluation Possible source of Sepsis: positive Unknown Assessment/Plan Problem List (1) Gram-negative bacteremia: Impression: Patient presented with a UTI. Blood cultures drawn on 03/17 are 2 out of 2 positive for gram-negative bacteria, Klebsiella pneumonia was detected. Continue IV Rocephin 2 g daily. Patient will require a 7-day course of IV antibiotics. Repeat blood cultures were ordered for today, 03/19. No growth to date. Plan for PICC line placement today. Patient received adequate IV hydration. Tolerating p.o. intake well. Continue to monitor. Leukocytosis has resolved. (2) UTI (urinary tract infection): Impression: See above. Qualifiers: Hematuria presence: without hematuria Urinary tract infection type: s ite unspecified Qualified Code(s): N39.0 - Urinary tract infection, site not specified (3) Sepsis: Impression: See above. Qualifiers: Acute renal failure type: unspecified Sepsis acute organ dysfunction status: with acute organ dysfunction Sepsis type: sepsis due to unspecified organism Severe sepsis acute organ dysfunction type: acute renal failure S evere sepsis shock status: without septic shock Qualified Code(s): A41.9 - Sepsis, unspecified organism; R65.20 - Severe sepsis without septic shock; N17.9 - Acute kidney failure, unspecified (4) Acute kidney injury: Impression: CT abdomen/pelvis on admission shows no hydronephrosis. Bladder scan completed, with no retention noted. Patient did receive IV hydration initially. Likely ATN due to sepsis from above. Stable for the past few days. (5) Prostate CA: Impression: Not on current treatment for it. If recurrent UTIs becomes a problem, will need follow-up with a urologist. (6) Diabetes mellitus: Impression: Continue low-dose sliding scale, frequent glucose checks, hypoglycemic protocol in place. Qualifiers: Diabetes mellitus complication status: without complication Diabetes mellitus long-term insulin use: without long-term use Diabetes mellitus type: t ype 2 Qualified Code(s): E11.9 - Type 2 diabetes mellitus without complications
--- NOTE | 2025-03-20 15:16 | ANESTHESIA PROCEDURE NOTE ---
Anesth Central Line Template Central Line Procedure Date: 03/20/25 Central Line Preparation: Consent Obtained, Time out completed, Ultrasound used and Sterile prep and drape Central line location: Right Basilic Central line type: PICC Single Lumen Central line catheter tip site resides: Superior vena cava (SVC) Central line aftercare: Secured, Placement confirmed (with teleflex VPS see scanned anesthesia record for image), No complications and Pt tolerated well
[2025-03-20] MEDS: INSULIN LISPRO 300 UNIT/3 ML PEN SUBQ SCH (20:41)
[2025-03-21] MEDS: MORPHINE 2 MG/ML CARPUJECT IVP PRN (00:03)
[2025-03-21 06:12] LABS: HCT - HEMATOCRIT 38.2 % (42.0-52.0); HGB - HEMOGLOBIN 12.4 g/dL (14.0-18.0); MEAN CORPUSCULAR HEMOGLOBIN 30.6 pg (27.0-31.0); MEAN CORPUSCULAR HGB CONC 32.5 g/dL (32.0-36.0); MEAN CORPUSCULAR VOLUME 94.3 fL (80.0-94.0); MEAN PLATELET VOLUME 11.1 fL (7.4-11.4); RED BLOOD COUNT 4.05 10^6/uL (4.70-6.10); WHITE BLOOD COUNT 5.7 x10^3/uL (4.8-10.8)
[2025-03-21 06:34] LABS: CALCIUM 8.5 mg/dL (8.5-10.3); POTASSIUM 3.9 mmol/L (3.5-4.5)
--- NOTE | 2025-03-21 10:23 | Discharge Summary ---
"Discharge Summary Admit Date: 03/18/25 Discharge Date: 03/21/25 Discharging Provider: Dr. Eliezer Hernandez Code Status: Attempt Resuscitation Discharge Facility Name: [facility] DIAGNOSES Admission Diagnoses: Sepsis Toxic, metabolic encephalopathy GIL Generalized debility Discharge Diagnoses with Status of Each Condition: Gram-negative bacteremiapatient presented with UTI, confusion. Blood cultures drawn 03/17 were 2 out of 2 positive for Klebsiella pneumonia. Repeat cultures drawn 03/19 with no growth to date. Will need 7-day course of IV Rocephin, which is susceptible to the Klebsiella. Received adequate IV hydration, continue to encourage p.o. intake. UTIsee above. Sepsisresolved. Acute kidney injuryCT abdomen/pelvis showed no hydronephrosis. Not retaining. Likely ATN due to sepsis from above. Now downtrending. Continue to monitor, recheck in 2 weeks, and resume metformin 1 resolved. Prostate cancerpatient with some hematuria, now with this episode of UTI, should follow-up with urology in the outpatient setting. Diabetes mellituscontinue to hold metformin, continue glipizide HPI History of Present Illness: Per Dr. Kenyon: history obtained form ED as pt is poor historian. pt brought to hospital d/t confusion and weakness. no chest pain reported. no head injuries reported. pt c/o hip pain and states he has fallen at home. no abuse reported. when asked questions, pt is very tangential during discussion, even stating the year to be 1994. CONSULTS | PROCEDURES Consultations: PT, OT, SW Procedures: CT abd/pelvis, blood cultures HOSPITAL COURSE Hospital Course: Patient is a 79-year-old male with a history of prostate adenocarcinoma currently not on treatment who presented for confusion. He was found to be septic, and blood cultures grew Klebsiella pneumonia, 2 out of 2. He was treated with IV Rocephin. Repeat blood cultures have been negative. He will require 7-day course of IV antibiotics. PT/OT also evaluated the patient, and they recommended [facility] on discharge. Family is opted for [facility]. He will continue his IV antibiotics there. PICC line was placed for this. He had an GIL on admission, attributed to ATN due to sepsis. Improved with IV fluids, and time. Will need to recheck this in 2 weeks, and resume metformin if able. Overall, deemed stable for discharge with PICC line in place and IV antibiotics for rehab. ALLERGIES Allergies Allergy/AdvReac Type Severity Reaction Status Date / Time No Known Drug Allergies Allergy Verified 03/17/25 22:12 MEDICATIONS Ambulatory Orders Medication Instructions Recorded Confirmed amlodipine 5 mg tablet 5 mg PO QAM 03/18/25 5 Held on 03/21/25. Instructions: Resume on 04/04/25. Hold until follow up with Pcp gabapentin 300 mg capsule 900 mg PO DAILY PM 03/18/25 03/18/25 glipizide 10 mg tablet, extended 10 mg PO QAM 03/18/25 03/18/25 release 24 hr metformin 500 mg tablet,extended 500 mg PO BID 5 03/18/25 release 24 hr Held on 03/21/25. Instructions: Resume on 04/04/25. Please hold until follow up with PCP. metoprolol succinate 50 mg 50 mg PO QPM 03/18/2503/18 tablet,extended release 24 hr rosuvastatin 40 mg tablet 20 mg PO QPM 03/18/25 ascorbic acid (vitamin C) 500 mg 500 mg PO DAILY #30 t abs 03/21/25 tablet (Vitamin C) PHYSICAL EXAM AT DISCHARGE Vital Signs: Vital Signs x48h Temp Pulse Resp BP Pulse Ox 03/21/25 11:10 98.1 F 69 20 121/63 94 03/21/25 07:30 97.7 F 73 18 117/61 97 General Appearance: positive No acute distress and Alert; negative Anxious Eyes Bilateral: positive Normal inspection, PERRL and EOMI ENT: positive ENT inspection nml, Pharynx nml and No signs of dehydration Neck: positive Nml inspection, Thyroid nml and No JVD Respiratory: positive Chest non-tender, No respiratory distress and Breath sounds nml Cardiovascular: positive Regular rate & rhythm, No murmur and No gallop; negative Extrasystoles, Tachycardia or Diastolic murmur Peripheral Pulses: positive 2+ Abdomen: positive Non-tender, No organomegaly, Nml bowel sounds and No distention Back: positive Nml inspection; negative CVA tenderness (R) or CVA tenderness (L) Skin: positive Color nml, No rash, Warm and Dry Extremities: positive Non-tender, Full ROM, Nml appearance and No pedal edema Neurologic/Psychiatric: positive Oriented x3, Mood/affect nml and Other (very hard of hearing ) LABS 03/21/25 05:42 03/21/25 05:42 DIAGNOSTIC IMAGING Diagnostic Imaging Results: Final report reviewed SEPSIS Current Stage of Sepsis: Resolved (with IV antbiotics) Possible source of Sepsis: Genitourinary FOLLOW UP Follow Up: Follow up with PCP. Follow up with Urology. TIME SPENT Time Spent in Discharge (Minutes): 35 Discharge Plan Discharge Patient Disposition: 03 [facility] DC/Xfer Condition: Stable Prescriptions: New ascorbic acid (vitamin C) [Vitamin C] 500 mg Tablet 500 mg PO DAILY Qty: 30 0RF Continued metoprolol succinate 50 mg tablet extended release 24 hr 50 mg PO QPM Patient Comments: TAKE TWO TABLETS BY MOUTH ONCE DAILY glipizide 10 mg tablet extended release 24hr 10 mg PO QAM Patient Comments: Take 2 tablets by mouth daily with breakfast gabapentin 300 mg capsule 900 mg PO DAILY PM Patient Comments: TAKE THREE CAPSULES BY MOUTH NIGHTLY rosuvastatin 40 mg tablet 20 mg PO QPM Patient Comments: TAKE ONE TABLET BY MOUTH ONE TIME DAILY Held amlodipine 5 mg tablet 5 mg PO QAM Hold Instructions: Resume on 04/04/25. Hold until follow up with Pcp Patient Comments: TAKE ONE TABLET BY MOUTH ONE TIME DAILY metformin 500 mg tablet extended release 24 hr 500 mg PO BID Hold Instructions: Resume on 04/04/25. Please hold until follow up with PCP. Patient Comments: TAKE TWO TABLETS BY MOUTH TWICE DAILY WITH BREAKFAST & DINNER. Activity Restrictions: Activity as Tolerated Diet: Regular Health Concerns: You came in because you were very weak, and confused. You were found to have a urinary tract infection. This infection spread to your blood. We treated you with IV antibiotics, which you will continue for 4 additional days at your rehab center. You felt pretty significantly weak and we had a physical therapist evaluate you, she does recommend you go to rehab on discharge to get stronger. Please hold your amlodipine and your metformin. Please follow-up with your primary care provider in 2 weeks to recheck your blood levels, including your creatinine level or your kidney levels, as well as your blood pressure, and restart when they they say it is okay to do so. We also some blood in your urine, and you do have a history of prostate cancer, which can be expected, but I would like you to follow-up with your urologist as well. We are glad you are feeling better, thanks for letting us take care of you. Print Language: Urdu Patient Instructions: UTI Stand Alone Forms: SNF Discharge, PCP List"
[2025-03-21 11:25] VITALS: BP 121/63; TEMP 98.1; O2SAT 94
== END 2025-03-21 14:35 | DRG 871 ==
LOC: ED 21:34 → MS2 03-18 00:22
PROVIDERS: ADMIT Student in an Organized Health Care Education/Training Program; ATTEND Student in an Organized Health Care Education/Training Program
DX: Z20.822 Contact with and (suspected) exposure to COVID-19; R65.20 Severe sepsis without septic shock; E11.9 Type 2 diabetes mellitus without complications; G92.8 Other toxic encephalopathy; W19.XXXA Unspecified fall, initial encounter; R53.1 Weakness; Z20.818 Contact with and (suspected) exposure to other bacterial communicable diseases; N17.0 Acute kidney failure with tubular necrosis; Z79.84 Long term (current) use of oral hypoglycemic drugs; A41.9 Sepsis, unspecified organism; A41.50 Gram-negative sepsis, unspecified; C61 Malignant neoplasm of prostate; Y92.009 Unspecified place in unspecified non-institutional (private) residence as the place of occurrence of the external cause; Z20.828 Contact with and (suspected) exposure to other viral communicable diseases; M25.559 Pain in unspecified hip; R31.9 Hematuria, unspecified; R53.81 Other malaise; Z79.899 Other long term (current) drug therapy